=== PATIENT | male | born 1990 | race Caucasian/White ===

== ENCOUNTER 2018-09-01 22:19 | Emergency (ER) | payer SELFPAY ==
[2018-09-01 23:07] VITALS: BP 128/84
[2018-09-02] MEDS ORDERED: CEPHALEXIN 500 MG CAPSULE PO ONE (01:31)
--- NOTE | 2018-09-02 01:35 | ER Document Report ---
HPI - HPI Patient complains to provider of: wound Time Seen by Provider: 09/02/18 00:55 Pain Level: 1 Context: Patient is a 28 year old male that comes to the Emergency Department for chief complaint of a wound in his belly button area that occurred 3 days ago, but has worsened, he has developing pain over the area, he has had some bleeding and today he had at first a clear and then a minimal whitish discharge from the belly button reportedly. Patient denies fever chills, nausea or vomiting. He denies any other complaints. He denies any other areas of pain. He clarifies that he was bending over a corner of a table when the sharp point went into his belly button causing the wound which bled. There was no bruising to the area. He denies any daily medications or medical problems other than orthopedic surgery in the past. - GASTROINTESTINAL Gastrointestinal: REPORTS: Abdominal Pain Past Medical History - General Information source: Patient - Social History Smoking Status: Current Every Day Smoker Chew tobacco use (# tins/day): No Smoking Education Provided: Yes - <3 min Frequency of alcohol use: Occasional Drug Abuse: None Lives with: Family Family History: Reviewed & Not Pertinent Patient has suicidal ideation: No Patient has homicidal ideation: No Renal/ Medical History: Denies: Hx Peritoneal Dialysis Past Surgical History: Reports: Hx Orthopedic Surgery - left arm - Immunizations Immunizations up to date: Yes Hx Diphtheria, Pertussis, Tetanus Vaccination: Yes Vertical Provider Document - CONSTITUTIONAL General Appearance: WD/WN, No Apparent Distress, Obese - INFECTION CONTROL TRAVEL OUTSIDE OF THE [place] IN LAST 30 DAYS: No - HEENT HEENT: Atraumatic, Normocephalic - NECK Neck: Normal Inspection - RESPIRATORY Respiratory: Breath Sounds Normal, No Respiratory Distress - CARDIOVASCULAR Cardiovascular: Regular Rate, Regular Rhythm - GI/ABDOMEN Gastrointestinal: Abdomen Soft, Abdomen Non-Tender - BACK Back: Normal Inspection - MUSCULOSKELETAL/EXTREMETIES Musculoskeletal/Extremeties: MAEW, FROM, Non-Tender - NEURO Level of Consciousness: Awake, Alert, Appropriate Motor/Sensory: No Motor Deficit, No Sensory Deficit - DERM Integumentary: Laceration - There is evidence of a very superficial laceration inside of the bellybutton and over the inferior aspect of the bellybutton. There is no open wound or current bleeding. There is evidence of recent bleeding however. I do not see any purulent drainage. There is mild tenderness within the bellybutton and there is some erythema inside of the bellybutton extending to the inferior aspect of the bellybutton as well. There is no spreading erythema around the abdomen. Unremarkable skin exam otherwise. Course - Re-evaluation Re-evalutation: I used a Q-tip and examined the umbilicus thoroughly, there is no evidence of perforation into the abdomen or extension into the abdominal space. There is a superficial wound inside of the bellybutton that extends to the base of the bellybutton. There is tenderness and erythema, no purulent drainage or bleeding at this time. There is evidence of wound infection but no severe spreading cellulitis. Examination is unremarkable otherwise. There is no bruising, there is no abdominal tenderness otherwise suggesting severe injury, injury happened 3 days ago. No fever or chills, patient is not a diabetic. Area was cleaned, patient placed on Keflex, discussed expectations, care, follow-up, return prec autions. Patient states understanding and agreement. - Vital Signs Vital signs: Temp Pulse Resp BP Pulse Ox 98.5 F 82 18 128/84 H 98 09/01/18 22:57 09/01/18 22:57 09/01/18 22:57 09/01/18 22:57 09/01/18 22:57 Discharge - Discharge Clinical Impression: Wound of skin, Wound infection Condition: Stable Disposition: HOME, SELF-CARE Additional Instructions: Your evaluation shows a small wound in the belly, this has developed area consistent with infection. Take the Keflex antibiotics as prescribed. Keep area clean, clean with soap and water, dab dry, you can apply a very thin film of topical antibiotic over the area. Follow-up with primary care. Return for any concerning symptoms including Spreading redness, fever/chills, severe worsening pain, or any other concerning or worsening symptoms. Prescriptions: Cephalexin Monohydrate [Keflex 500 mg Capsule] 500 mg PO QID #28 capsule Forms: Return to Work
== END 2018-09-02 01:53 | disposition home or self-care (01) ==
LOC: ER 22:19
DX: S30.92XA Unspecified superficial injury of abdominal wall, initial encounter (principal); L08.9 Local infection of the skin and subcutaneous tissue, unspecified; X58.XXXA Exposure to other specified factors, initial encounter; F17.200 Nicotine dependence, unspecified, uncomplicated
CPT/HCPCS: 99282

== ENCOUNTER 2019-01-14 11:53 | Emergency (ER) | payer SELFPAY ==
[2019-01-14] MEDS ORDERED: NORMAL SALINE 1000 ML 1,000 ML IV ONE (12:02)
[2019-01-14] MEDS ORDERED: ONDANSETRON HCL INJ/PF 4 MG/2 ML SDV IV ONE (12:02)
--- NOTE | 2019-01-14 12:13 | ER Document Report ---
ED Medical Screen (RME) - General Chief Complaint: Abdominal Pain Stated Complaint: NAUSEA/VOMITING Time Seen by Provider: 01/14/19 12:01 Mode of Arrival: Ambulatory Information source: Patient TRAVEL OUTSIDE OF THE [place] IN LAST 30 DAYS: No - HPI Notes: 01/14/19 12:09 28-year-old male presents to the ED for complaints of nausea vomiting diarrhea x2 days, becoming progressively worse. Has tried [id number] antidiarrheal and antinausea medications without relief. hx of GERD. denies any new medications, recent travel or new foods. Denies any history of IBS, colitis, diverticulitis. Denies having any abdominal pain. denies fevers, chills, chest pain,palpitations, shortness of breath, dyspnea, hematuria,weakness, bowel or bladder dysfunction, saddle anesthesia, numbness or tingling in bilateral upper or lower extremities equally, muscle paralysis, weakness in bilateral upper or lower extremities equally or rash. ROS: Other than noted above, the 12 point review of systems was reviewed with the patient and were negative, all pertinent findings are included in the HPI. PHYSICAL EXAMINATION: Vital signs reviewed. GENERAL: Well-appearing, well-nourished and in no acute distress. HEAD: Atraumatic, normocephalic. NECK: Normal range of motion CV: Heart regular rate and rhythm LUNGS: No respiratory distress ABD: bs heard in all quads, epigastric abd tenderness Musculoskeletal: Normal range of motion NEUROLOGICAL: Normal speech PSYCH: Normal mood, normal affect. MDM: Patient seen and examined for rapid initial assessment. Vital signs reviewed. A comprehensive ED assessment and evaluation of the patient, analysis of test results and completion of the medical decision making process will be conducted by additional ED providers. *Note is created using voice recognition software and may contain spelling, syntax or grammatical errors. May not 01/14/19 12:13 - Related Data Allergies/Adverse Reactions: No Known Allergies Allergy (Verified 01/14/19 11:53) Past Medical History - Social History Frequency of alcohol use: None Drug Abuse: Marijuana Renal/ Medical History: Denies: Hx Peritoneal Dialysis Past Surgical History: Reports: Hx Orthopedic Surgery - left arm - Immunizations Immunizations up to date: Yes Hx Diphtheria, Pertussis, Tetanus Vaccination: Yes Physical Exam - Vital signs Vitals: Temp Pulse Resp BP Pulse Ox 98.2 F 80 20 132/70 H 97 01/14/19 11:57 01/14/19 11:57 01/14/19 11:57 01/14/19 11:57 01/14/19 11:57 Course - Vital Signs Vital signs: Temp Pulse Resp BP Pulse Ox 98.2 F 80 20 132/70 H 97 01/14/19 11:57 01/14/19 11:57 01/14/19 11:57 01/14/19 11:57 01/14/19 11:57
[2019-01-14 12:34] LABS: ABSOLUTE EOSINOPHILS # (AUTO) 0.6 10^3/uL (0.0-0.6); ABSOLUTE LYMPHOCYTES (AUTO) 1.6 10^3/uL (0.5-4.7); ABSOLUTE MONOCYTES (AUTO) 0.8 10^3/uL (0.1-1.4); ABSOLUTE NEUT (AUTO) 5.2 10^3/uL (1.7-8.2); BASOPHILS % (AUTO) 0.4 % (0-2); EOSINOPHILS % (AUTO) 7.9 % (0-6); HEMATOCRIT 43.1 % (37.9-51.0); HEMOGLOBIN 14.3 g/dL (13.5-17.0); LYMPHOCYTES % (AUTO) 19.4 % (13-45); MEAN CORPUSCULAR HEMOGLOBIN 29.7 pg (27.0-33.4); MEAN CORPUSCULAR HGB CONC 33.3 g/dL (32.0-36.0); MEAN CORPUSCULAR VOLUME 89 fl (80-97); MONOCYTES % (AUTO) 9.5 % (3-13); PLATELET COUNT 281 10^3/uL (150-450); RED BLOOD COUNT 4.83 10^6/uL (4.35-5.55); RED CELL DISTRIBUTION WIDTH 13.5 % (11.5-14.0); SEGMENTED NEUTROPHILS % (AUTO) 62.8 % (42-78); TOTAL CELLS COUNTED % (AUTO) 100 %; WHITE BLOOD COUNT 8.2 10^3/uL (4.0-10.5)
[2019-01-14 12:49] LABS: APPEARANCE,URINE CLEAR; BILIRUBIN,URINE NEGATIVE (NEGATIVE); COLOR,URINE YELLOW; GLUCOSE, URINE NEGATIVE (NEGATIVE); KETONES,URINE NEGATIVE (NEGATIVE); LEUKOCYTE ESTERASE,URINE NEGATIVE (NEGATIVE); NITRITE,URINE NEGATIVE (NEGATIVE); PROTEIN,URINE NEGATIVE (NEGATIVE); URINE SPECIFIC GRAVITY 1.013; UROBILINOGEN,URINE NEGATIVE mg/dL (<2.0)
[2019-01-14 12:54] LABS: ALANINE AMINOTRANSFERASE 47 U/L (21-72); ALBUMIN 4.1 g/dL (3.5-5.0); ALKALINE PHOSPHATASE 80 U/L (38-126); ANION GAP 7 (5-19); ASPARTATE AMINO TRANSFERASE 29 U/L (17-59); BILIRUBIN,DIRECT 0.3 mg/dL (0.0-0.4); BILIRUBIN,TOTAL 0.3 mg/dL (0.2-1.3); BLOOD UREA NITROGEN 8 mg/dL (7-20); CALCIUM 9.4 mg/dL (8.4-10.2); CARBON DIOXIDE 31 mmol/L (22-30); CHLORIDE 103 mmol/L (98-107); GLUCOSE 99 mg/dL (75-110); POTASSIUM 4.3 mmol/L (3.6-5.0); TOTAL PROTEIN 7.2 g/dL (6.3-8.2)
--- NOTE | 2019-01-14 13:10 | ER Document Report ---
ED General - General Chief Complaint: Abdominal Pain Stated Complaint: NAUSEA/VOMITING Time Seen by Provider: 01/14/19 12:01 Mode of Arrival: Ambulatory Information source: Patient Notes: This 27-year-old male presents emergency department with complaints of nausea vomiting diarrhea for 2 days. Reports he vomited all day yesterday and Saturday. Reports symptoms are worse in the morning and at night, seems to slow down during the midday. Reports he was drinking lots of fluids yesterday to try to stay hydrated but he kept vomiting them up.. He reports constant diarrhea with a very foul smell. Denies fever. He reports no other family members are ill. He works at [employer] no other coworkers are ill that he knows of. He has not been out of the country has not had recent antibiotics. Patient reports his abdomen does not hurt. Patient does admit to smoking marijuana. Reports he is increased use recently because it helps with the nausea. Patient also reports he is used Imodium and some type of antinausea medicine without relief. He woke up this morning vomited one time and he had 4-5 epoisodes of diarrhea. Patient has received 1 L of fluids reports he feels better. No further vomiting or diarrhea since arrival. TRAVEL OUTSIDE OF THE [place] IN LAST 30 DAYS: No - HPI Onset: Other Onset/Duration: Persistent Quality of pain: No pain Associated symptoms: Diarrhea, Nausea, Vomiting Exacerbated by: Denies Relieved by: Denies Similar symptoms previously: No Recently seen / treated by doctor: No - Related Data Allergies/Adverse Reactions: No Known Allergies Allergy (Verified 01/14/19 11:53) Past Medical History - General Information source: Patient - Social History Smoking Status: Current Every Day Smoker Cigarette use (# per day): No Frequency of alcohol use: None Drug Abuse: Marijuana Occupation: [employer] Lives with: Family Family History: Reviewed & Not Pertinent Patient has suicidal ideation: No Patient has homicidal ideation: No Renal/ Medical History: Denies: Hx Peritoneal Dialysis GI Medical History: Reports: Hx Gastroesophageal Reflux Disease Past Surgical History: Reports: Hx Orthopedic Surgery - left arm - Immunizations Immunizations up to date: Yes Hx Diphtheria, Pertussis, Tetanus Vaccination: Yes Review of Systems - Review of Systems Notes: Review HPI for review of systems., All other systems negative Physical Exam - Vital signs Vitals: Temp Pulse Resp BP Pulse Ox 98.2 F 80 20 132/70 H 97 01/14/19 11:57 01/14/19 11:57 01/14/19 11:57 01/14/19 11:57 01/14/19 11:57 - Notes Notes: PHYSICAL EXAMINATION: GENERAL: Well-appearing and in no acute distress HEAD: Atraumatic, normocephalic. EYES: Pupils equal round extraocular movements intact, sclera anicteric, conjunctiva are normal. ENT: nares patent, Moist mucous membranes. NECK: Normal range of motion, supple without lymphadenopathy LUNGS: CTAB and equal. No wheezes rales or rhonchi. HEART: Regular rate and rhythm without murmurs ABDOMEN: Soft, no tenderness. No guarding, no rebound EXTREMITIES: Normal range of motion, . NEUROLOGICAL: Cranial nerves grossly intact. PSYCH: Normal mood, normal affect. SKIN: Warm, Dry, normal turgor, no rashes or lesions noted Course - Re-evaluation Re-evalutation: 01/14/19 13:36 27-year-old presents with episodes of nausea vomiting diarrhea since Saturday. Reports he vomited one time this morning and had 4-5 episodes of diarrhea the same. Patient reports he is taking Imodium and antinausea medication without relief of symptoms. Also reports he is increased his usage of marijuana to help with the nausea. Reports nothing is working. Patient reports stool is very foul-smelling but denies recent antibiotic use denies recent trip. Discussed C. difficile patient is unaware of any family members with C. difficile. Patient feels better after 1 L fluid. Will do p.o. challenge provide patient with another liter of fluid and obtain stool sample if patient has diarrhea again. Patient verbalized understanding to plan of care. 01/14/19 14:25 Labs unremarkable. Patient was able to hold p.o. fluids down without problems. Ready to go home. No diarrhea since arrival. 01/14/19 12:15 01/14/19 12:15 MCV 89 fl (80-97) 01/14/19 12:15 MCH 29.7 pg (27.0-33.4) 01/14/19 12:15 MCHC 33.3 g/dL (32.0-36.0) 01/14/19 12:15 RDW 13.5 % (11.5-14.0) 01/14/19 12:15 Seg Neutrophils % 62.8 % (42-78) 01/14/19 12:15 Lymphocytes % 19.4 % (13-45) 01/14/19 12:15 Monocytes % 9.5 % (3-13) 01/14/19 12:15 Eosinophils % 7.9 % (0-6) H 01/14/19 12:15 Basophils % 0.4 % (0-2) 01/14/19 12:15 Absolute Neutrophils 5.2 10^3/uL (1.7-8.2) 01/14/19 12:15 Absolute Lymphocytes 1.6 10^3/uL (0.5-4.7) 01/14/19 12:15 Absolute Monocytes 0.8 10^3/uL (0.1-1.4) 01/14/19 12:15 Absolute Eosinophils 0.6 10^3/uL (0.0-0.6) 01/14/19 12:15 Absolute Basophils 0.0 10^3/uL (0.0-0.2) 01/14/19 12:15 Chloride 103 mmol/L (98-107) 01/14/19 12:15 Carbon Dioxide 31 mmol/L (22-30) H 01/14/19 12:15 Anion Gap 7 (5-19) 01/14/19 12:15 Est GFR ( Amer) > 60 (>60) 01/14/19 12:15 Est GFR (Non-Af Amer) > 60 (>60) 01/14/19 12:15 Glucose 99 mg/dL (75-110) 01/14/19 12:15 Calcium 9.4 mg/dL (8.4-10.2) 01/14/19 12:15 Total Bilirubin 0.3 mg/dL (0.2-1.3) 01/14/19 12:15 AST 29 U/L (17-59) 01/14/19 12:15 ALT 47 U/L (21-72) 01/14/19 12:15 Alkaline Phosphatase 80 U/L (38-126) 01/14/19 12:15 Total Protein 7.2 g/dL (6.3-8.2) 01/14/19 12:15 Albumin 4.1 g/dL (3.5-5.0) 01/14/19 12:15 Lipase 56.2 U/L (23-300) 01/14/19 12:15 Urine Color YELLOW 01/14/19 12:15 Urine Appearance CLEAR 01/14/19 12:15 Urine pH 9.0 (5.0-9.0) 01/14/19 12:15 Ur Specific [place] 1.013 01/14/19 12:15 Urine Protein NEGATIVE mg/dL (NEGATIVE) 01/14/19 12:15 Urine Glucose (UA) NEGATIVE mg/dL (NEGATIVE) 01/14/19 12:15 Urine Ketones NEGATIVE mg/dL (NEGATIVE) 01/14/19 12:15 Urine Blood NEGATIVE (NEGATIVE) 01/14/19 12:15 Urine Nitrite NEGATIVE (NEGATIVE) 01/14/19 12:15 Ur Leukocyte Esterase NEGATIVE (NEGATIVE) 01/14/19 12:15 Urine WBC (Auto) 0 /HPF 01/14/19 12:15 - Vital Signs Vital signs: Temp Pulse Resp BP Pulse Ox 98.5 F 78 18 136/78 H 99 01/14/19 15:00 01/14/19 15:00 01/14/19 15:00 01/14/19 15:00 01/14/19 15:00 - Laboratory Result Diagrams: 01/14/19 12:15 01/14/19 12:15 Laboratory results interpreted by me: 01/14/19 01/14/19 12:15 12:15 Eosinophils % 7.9 H Carbon Dioxide 31 H Discharge - Discharge Clinical Impression: Nausea vomiting and diarrhea Condition: Stable Disposition: HOME, SELF-CARE Instructions: Antinausea Medication ([facility]), Diarrhea, Nonspecific ([facility]), Intravenous (IV) Fluids ([facility]), OTC Antidiarrhea Medication ([facility]), Vomiting ([facility]) Additional Instructions: *You have been evaluated for nausea/vomiting/diarrhea *Take medication as prescribed *Over the counter anti-diarrheal as indicated *Ensure adequate fluid intake as discussed to prevent dehydration *Return to outpatient lab with stool sample *Follow up with a primary care provider within one week for recheck *Return to ED for worsening condition, changes, needs Monitor your blood pressure. Your blood pressure was elevated today. This may be because you were anxious, in pain or because you need medication. It is impo rtant to follow up with your primary care provider for full evaluation. Forms: Elevated Blood Pressure, Follow-Up Laboratory Testing, Return to Work
[2019-01-14] MEDS ORDERED: ONDANSETRON ODT 4 MG TAB (6 TAB/ER DISP) PO PRN (14:26)
[2019-01-14 15:01] VITALS: BP 136/78
== END 2019-01-14 15:01 | disposition home or self-care (01) ==
LOC: ER 11:53 → EDBD 11:53 → ER 15:01
DX: R11.2 Nausea with vomiting, unspecified (principal); R19.7 Diarrhea, unspecified; F17.200 Nicotine dependence, unspecified, uncomplicated; F12.10 Cannabis abuse, uncomplicated; Z87.19 Personal history of other diseases of the digestive system
CPT/HCPCS: 99284; 96361; 96374; 36415; 83690; 85025; 80053; 81001; J2405; J7030

== ENCOUNTER 2019-01-28 08:21 | Emergency (ER) | payer SELFPAY ==
[2019-01-28] MEDS ORDERED: ONDANSETRON HCL INJ/PF 4 MG/2 ML SDV IV ONE (09:41)
[2019-01-28] MEDS ORDERED: NORMAL SALINE 1000 ML 1,000 ML IV ONE (09:42)
[2019-01-28] MEDS ORDERED: MORPHINE SULFATE 10 MG/ML INJ IV ONE ×2 (09:42→11:59)
[2019-01-28] MEDS ORDERED: FAMOTIDINE INJ/PF 20 MG/2 ML SDV IV ONE (09:42)
--- NOTE | 2019-01-28 09:45 | ER Document Report ---
ED Medical Screen (RME) - General Chief Complaint: Nausea/Vomiting Stated Complaint: ABDOMINAL PAIN Time Seen by Provider: 01/28/19 09:41 Notes: Patient is a 27-year-old male who presents to the emergency department with a chief complaint of abdominal pain. Patient states this pain has been intermittent for the past 3 weeks. Patient states he was seen here in the emergency department for the same a few weeks ago. Patient states that over the past few weeks the pain has gradually gotten worse. Patient states the pain is primarily in the left upper quadrant. Patient states that he is able to eat at times which does not make the pain worse. Patient states he feels like he has to sleep on his right side as it is too painful to sleep on the left. Patient states he has been belching frequently which does not cause relief of his abd ominal pain. Patient reports a foul odor to his belching. Patient denies sick contacts or recent out of country travel. Patient denies fever. TRAVEL OUTSIDE OF THE [place] IN LAST 30 DAYS: No - Related Data Allergies/Adverse Reactions: No Known Allergies Allergy (Verified 01/28/19 08:27) Past Medical History Renal/ Medical History: Denies: Hx Peritoneal Dialysis GI Medical History: Reports: Hx Gastroesophageal Reflux Disease Past Surgical History: Reports: Hx Orthopedic Surgery - left arm - Immunizations Immunizations up to date: Yes Hx Diphtheria, Pertussis, Tetanus Vaccination: Yes Physical Exam - Vital signs Vitals: Temp Pulse Resp BP Pulse Ox 97.3 F 77 17 137/97 H 94 01/28/19 08:27 01/28/19 08:27 01/28/19 08:27 01/28/19 08:27 01/28/19 08:27 - Abdominal Inspection: Normal Distension: No distension Bowel sounds: Hyperactive Tenderness: Tender - Generalized upper abdominal tenderness. Course - Re-evaluation Re-evalutation: 01/28/19 09:44 I have greeted and performed a rapid initial assessment of this patient. A comprehensive ED assessment and evaluation of the patient, analysis of test results and completion of the medical decision making process will be conducted by additional ED providers. - Vital Signs Vital signs: Temp Pulse Resp BP Pulse Ox 97.3 F 77 17 137/97 H 94 01/28/19 08:27 01/28/19 08:27 01/28/19 08:27 01/28/19 08:27 01/28/19 08:27
[2019-01-28 10:21] LABS: ABSOLUTE BASOPHILS # (AUTO) 0.1 10^3/uL (0.0-0.2); ABSOLUTE EOSINOPHILS # (AUTO) 0.8 10^3/uL (0.0-0.6); ABSOLUTE LYMPHOCYTES (AUTO) 1.9 10^3/uL (0.5-4.7); ABSOLUTE MONOCYTES (AUTO) 0.8 10^3/uL (0.1-1.4); ABSOLUTE NEUT (AUTO) 7.8 10^3/uL (1.7-8.2); BASOPHILS % (AUTO) 0.5 % (0-2); EOSINOPHILS % (AUTO) 7.4 % (0-6); HEMATOCRIT 44.3 % (37.9-51.0); HEMOGLOBIN 14.4 g/dL (13.5-17.0); LYMPHOCYTES % (AUTO) 16.7 % (13-45); MEAN CORPUSCULAR HEMOGLOBIN 29.2 pg (27.0-33.4); MEAN CORPUSCULAR HGB CONC 32.5 g/dL (32.0-36.0); MEAN CORPUSCULAR VOLUME 90 fl (80-97); MONOCYTES % (AUTO) 7.2 % (3-13); PLATELET COUNT 280 10^3/uL (150-450); RED BLOOD COUNT 4.94 10^6/uL (4.35-5.55); RED CELL DISTRIBUTION WIDTH 13.8 % (11.5-14.0); SEGMENTED NEUTROPHILS % (AUTO) 68.2 % (42-78); TOTAL CELLS COUNTED % (AUTO) 100 %; WHITE BLOOD COUNT 11.4 10^3/uL (4.0-10.5)
--- NOTE | 2019-01-28 10:38 | ER Document Report ---
ED GI/ - General Chief Complaint: Nausea/Vomiting Stated Complaint: ABDOMINAL PAIN Time Seen by Provider: 01/28/19 09:41 Mode of Arrival: Ambulatory Information source: Patient Notes: This is an otherwise healthy 28-year-old male presenting to the emergency department chief complaint of nausea, vomiting and diarrhea. He also reports generalized abdominal pain. Patient reports pain has been persistent over the last 2 days. He reports he was seen here in this emergency department for si milar symptoms approximately 1 week ago. Patient reports the symptoms have been intermittent over the last week but getting worse over the last 24 hours. He is unsure if he has had a fever but he does report that he has had chills. He denies any dysuria or back pain. He states the abdominal pain feels like a sharp stabbing pain throughout his abdomen. TRAVEL OUTSIDE OF THE [place] IN LAST 30 DAYS: No - Related Data Allergies/Adverse Reactions: No Known Allergies Allergy (Verified 01/28/19 08:27) Past Medical History - General Information source: Patient - Social History Smoking Status: Current Every Day Smoker Chew tobacco use (# tins/day): No Drug Abuse: None Family History: Reviewed & Not Pertinent Patient has suicidal ideation: No Patient has homicidal ideation: No Renal/ Medical History: Denies: Hx Peritoneal Dialysis GI Medical History: Reports: Hx Gastroesophageal Reflux Disease Past Surgical History: Reports: Hx Orthopedic Surgery - left arm - Immunizations Immunizations up to date: Yes Hx Diphtheria, Pertussis, Tetanus Vaccination: Yes Review of Systems - Review of Systems Constitutional: Chills EENT: No symptoms reported Cardiovascular: No symptoms reported Respiratory: No symptoms reported Gastrointestinal: Abdominal pain, Diarrhea, Nausea, Vomiting Genitourinary: No symptoms reported Male Genitourinary: No symptoms reported Musculoskeletal: No symptoms reported Skin: No symptoms reported Hematologic/Lymphatic: No symptoms reported Neurological/Psychological: No symptoms reported Physical Exam - Vital signs Vitals: Temp Pulse Resp BP Pulse Ox 97.3 F 77 17 137/97 H 94 01/28/19 08:27 01/28/19 08:27 01/28/19 08:27 01/28/19 08:27 01/28/19 08:27 - Notes Notes: PHYSICAL EXAMINATION: GENERAL: Morbidly obese white male. No acute distress noted. HEAD: Atraumatic, normocephalic. EYES: Pupils equal round and reactive to light, extraocular movements intact, sclera anicteric, conjunctiva are normal. ENT: Nares patent, oropharynx clear without exudates. Moist mucous membranes. NECK: Normal range of motion, supple without lymphadenopathy LUNGS: Breath sounds clear to auscultation bilaterally and equal. No wheezes rales or rhonchi. HEART: Regular rate and rhythm without murmurs ABDOMEN: Soft, nondistended abdomen. Generalized tenderness to palpation no guarding, no rebound. No masses appreciated. Musculoskeletal: Normal range of motion, no pitting or edema. No cyanosis. NEUROLOGICAL: Cranial nerves grossly intact. Normal speech, normal gait. Normal sensory, motor exams PSYCH: Normal mood, normal affect. SKIN: Warm, Dry, normal turgor, no rashes or lesions noted. Course - Re-evaluation Re-evalutation: Laboratory 01/28/19 01/28/19 01/28/19 10:00 10:00 10:23 WBC 11.4 H RBC 4.94 Hgb 14.4 Hct 44.3 MCV 90 MCH 29.2 MCHC 32.5 RDW 13.8 Plt Count 280 Seg Neutrophils % 68.2 Lymphocytes % 16.7 Monocytes % 7.2 Eosinophils % 7.4 H Basophils % 0.5 Absolute Neutrophils 7.8 Absolute Lymphocytes 1.9 Absolute Monocytes 0.8 Absolute Eosinophils 0.8 H Absolute Basophils 0.1 Sodium 139.5 Potassium 4.6 Chloride 105 Carbon Dioxide 27 Anion Gap 8 BUN 8 Creatinine 0.74 Est GFR ( Amer) > 60 Est GFR (Non-Af Amer) > 60 Glucose 93 Calcium 9.1 Total Bilirubin 0.3 Direct Bilirubin 0.3 Neonat Total Bilirubin Not Reportable Neonat Direct Bilirubin Not Reportable Neonat Indirect Bili Not Reportable AST 38 ALT 38 Alkaline Phosphatase 82 Total Protein 7.0 Albumin 4.0 Lipase 43.8 Urine Color STRAW Urine Appearance CLEAR Urine pH 6.0 Ur Specific [place] 1.012 Urine Protein NEGATIVE Urine Glucose (UA) NEGATIVE Urine Ketones NEGATIVE Urine Blood NEGATIVE Urine Nitrite NEGATIVE Urine Bilirubin NEGATIVE Urine Urobilinogen NEGATIVE Ur Leukocyte Esterase NEGATIVE Urine WBC (Auto) 0 Urine RBC (Auto) 0 Urine Ascorbic Acid NEGATIVE Abdomen/Pelvis CT 01/28/19 11:59 IMPRESSION: 1. Gas fluid levels in the transverse and descending colon which can be seen with diarrheal illness or cathartic use. No evidence of intestinal obstruction or other acute intra-abdominal process. 2. Small area of decreased attenuation along the gallbladder fossa, likely focal fat. 3. Partially evaluated low density lesion within the right inguinal canal, likely hydrocele. - Vital Signs Vital signs: Temp Pulse Resp BP Pulse Ox 98.1 F 86 16 127/82 H 98 01/28/19 14:37 01/28/19 14:37 01/28/19 14:37 01/28/19 14:37 01/28/19 14:37 - Laboratory Result Diagrams: 01/28/19 10:00 01/28/19 10:00 Laboratory results interpreted by me: 01/28/19 10:00 WBC 11.4 H Eosinophils % 7.4 H Absolute Eosinophils 0.8 H Discharge - Discharge Clinical Impression: Diarrhea Qualifiers: Diarrhea type: unspecified type Qualified Code(s): R19.7 - Diarrhea, unspecified Condition: Stable Disposition: HOME, SELF-CARE Additional Instructions: Diarrhea Diarrhea means frequent, watery stools. There are many causes. Any problem that keeps the intestinal tract from absorbing water from the stool can lead to diarrhea. A sudden new diarrhea problem is usually caused by a virus, food sensitivity, toxic bacteria, or drugs. In this case, we expect the problem to go away soon. Testing is done only if you seem seriously ill from the diarrhea. If you have chronic diarrhea, or diarrhea that keeps coming back, we need to find out why. Chronic diarrhea can be due to inflammation of the bowels such as Crohn's disease or ulcerative colitis, food sensitivity such as intolerance to lactose or wheat protein, irritable bowel syndrome, and other problems. If your diarrhea is a significant problem but it's not clear why you have it, we'll refer you to a specialist for further testing. During an episode of diarrhea, drink small amounts (two to six ounces) of clear liquids (soft drinks, sport drinks, herb teas, broth, etc). Take fluids frequently to prevent dehydration. It's usually not a problem to take mild anti- diarrhea medication such as Kaopectate or Pepto-Bismol. As the diarrhea eases, advance to small amounts of bland food (mashed potato, toast) for 24 hours. Call the physician if blood appears in your vomit or stool, if vomiting lasts longer than 24 hours, if the abdominal pain worsens or becomes localized to one area, if you develop high fever, or if you become lightheaded and weak. As discussed please call and make an appointment with a lottery office manager. Take antibiotics as prescribed. You may want to consider taking an [id number] Imodium. Start taking probiotics. Push fluids. Drop off a stool sample if possible, taken straight to the lab with the associated paperwork. Return to the emergency department for any new or worsening symptoms to include worsening pain, development of fever or any other concerning symptoms. Prescriptions: Ciprofloxacin HCl [Cipro 500 mg Tablet] 500 mg PO BID #6 tablet Forms: Follow-Up Laboratory Testing, Return to Work
[2019-01-28 10:48] LABS: APPEARANCE,URINE CLEAR; BILIRUBIN,URINE NEGATIVE (NEGATIVE); COLOR,URINE STRAW; GLUCOSE, URINE NEGATIVE (NEGATIVE); KETONES,URINE NEGATIVE (NEGATIVE); LEUKOCYTE ESTERASE,URINE NEGATIVE (NEGATIVE); NITRITE,URINE NEGATIVE (NEGATIVE); PROTEIN,URINE NEGATIVE (NEGATIVE); URINE SPECIFIC GRAVITY 1.012; UROBILINOGEN,URINE NEGATIVE mg/dL (<2.0)
[2019-01-28 10:49] LABS: ALKALINE PHOSPHATASE 82 U/L (38-126); ANION GAP 8 (5-19); ASPARTATE AMINO TRANSFERASE 38 U/L (17-59); BILIRUBIN,DIRECT 0.3 mg/dL (0.0-0.4); BILIRUBIN,TOTAL 0.3 mg/dL (0.2-1.3); BLOOD UREA NITROGEN 8 mg/dL (7-20); CALCIUM 9.1 mg/dL (8.4-10.2); CARBON DIOXIDE 27 mmol/L (22-30); CHLORIDE 105 mmol/L (98-107); GLUCOSE 93 mg/dL (75-110); POTASSIUM 4.6 mmol/L (3.6-5.0)
[2019-01-28] MEDS ORDERED: METOCLOPRAMIDE HCL INJ/PF 10 MG/2 ML SDV IV ONE (11:58)
--- NOTE | 2019-01-28 12:35 | RADIOLOGY REPORT (SQ) ---
EXAM DESCRIPTION: CT ABD/PELVIS WITH IV ONLY COMPLETED DATE/TIME: 01/28/2019 12:20 pm REASON FOR STUDY: diarrhea, LLQ/LUQ pain COMPARISON: None. TECHNIQUE: CT scan of the abdomen and pelvis performed using helical scanning technique with dynamic intravenous contrast injection. No oral contrast. Images reviewed with lung, soft tissue, and bone windows. Reconstructed coronal and sagittal MPR images reviewed. Delayed images for evaluation of the urinary system also acquired. All images stored on PACS. All CT scanners at this facility use dose modulation, iterative reconstruction, and/or weight based d osing when appropriate to reduce radiation dose to as low as reasonably achievable (ALARA). [facility]: Dose Right [facility]: CareDose [facility]: Dose Right [facility]: Teradose 4D [facility]: [employer] CONTRAST TYPE AND DOSE: Omnipaque 350 RENAL FUNCTION: Creatinine 0.74 RADIATION DOSE: CT Rad equipment meets quality standard of care and radiation dose reduction techniq ues were employed. CTDIvol: 18.6 - 20.3 mGy. DLP: 2502 mGy-cm.. LIMITATIONS: None. FINDINGS: LOWER CHEST: No significant findings. No nodules or infiltrates. LIVER: Normal size. Focal area of hypoattenuation along the gallbladder fossa, likely O focal fat. No other hepatic lesions. No intrahepatic ductal dilation. SPLEEN: Normal size. No focal lesions. PANCREAS: No masses. No significant calcifications. No adjacent inflammation or peripancreatic fluid collections. Pancreatic duct not dilated. GALLBLADDER: No identified stones by CT criteria. No inflammatory changes to suggest cholecystitis. ADRENAL GLANDS: No significant masses or asymmetry. RIGHT KIDNEY AND URETER: No solid masses. No significant calcifications. No hydronephrosis or hyd roureter. LEFT KIDNEY AND URETER: No solid masses. No significant calcifications. No hydronephrosis or hydr oureter. AORTA AND VESSELS: No aneurysm. No dissection. Renal arteries, SMA, celiac without stenosis. RETROPERITONEUM: No retroperitoneal adenopathy, hemorrhage or masses. BOWEL AND PERITONEAL CAVITY: No focal bowel wall thickening. No evidence of intestinal obstruction. Fluid level within the transverse and descending colon which can be seen with diarrheal illness or c athartic use. APPENDIX: Normal. PELVIS: No mass or free fluid. Unremarkable bladder. Partially evaluated low-attenuation within the right inguinal canal, likely hydrocele. ABDOMINAL WALL: No masses. No hernias. BONES: No significant or acute findings. OTHER: No other significant finding. IMPRESSION: 1. Gas fluid levels in the transverse and descending colon which can be seen with diarr heal illness or cathartic use. No evidence of intestinal obstruction or other acute intra-abdominal process. 2. Small area of decreased attenuation along the gallbladder fossa, likely focal fat. 3. Partially evaluated low density lesion within the right inguinal canal, likely hydrocele. TECHNICAL DOCUMENTATION: JOB ID: [id number] Quality ID # [id number]: Final reports with documentation of one or more dose reduction techniques (e.g., Au tomated exposure control, adjustment of the mA and/or kV according to patient size, use of iterative reconstruction technique) 2010 [employer]- All Rights Reserved Reading location - IP/workstation name: [email or web address]
[2019-01-28 14:39] VITALS: BP 127/82
== END 2019-01-28 14:39 | disposition home or self-care (01) ==
LOC: ER 08:21
DX: R19.7 Diarrhea, unspecified (principal); R11.2 Nausea with vomiting, unspecified; R10.84 Generalized abdominal pain; F17.200 Nicotine dependence, unspecified, uncomplicated; E66.01 Morbid (severe) obesity due to excess calories
CPT/HCPCS: 99284; 96374; 36415; 83690; 85025; 80053; 81001; 74177; J2765; J2270; J2405; J7030; S0028

== ENCOUNTER 2019-05-15 17:36 | Emergency (ER) | payer MEDICAID ==
[2019-05-15] MEDS ORDERED: ACETAMINOPHEN 325 MG TABLET PO ONE (18:57)
[2019-05-15 19:40] VITALS: BP 132/87
--- NOTE | 2019-05-15 19:41 | ER Document Report ---
HPI - HPI Patient complains to provider of: Sore throat Time Seen by Provider: 05/15/19 18:44 Pain Level: 2 Context: Patient is a 28-year-old male presents to the emergency department sore throat and subjective fevers that started yesterday. Voices he does have a history of strep throat. States he gets it "all the time." Patient's denying any cough, congestion, nausea, vomiting, diarrhea. Patient voices he did take Motrin approximately 2 hours prior to arrival to the emergency room. - REPRODUCTIVE Reproductive: DENIES: : Past Medical History - General Information source: Patient - Social History Smoking Status: Former Smoker Frequency of alcohol use: Occasional Drug Abuse: Marijuana Family History: Reviewed & Not Pertinent Patient has suicidal ideation: No Patient has homicidal ideation: No Renal/ Medical History: Denies: Hx Peritoneal Dialysis GI Medical History: Reports: Hx Gastroesophageal Reflux Disease Past Surgical History: Reports: Hx Orthopedic Surgery - left arm - Immunizations Immunizations up to date: Yes Hx Diphtheria, Pertussis, Tetanus Vaccination: Yes Vertical Provider Document - CONSTITUTIONAL Agree With Documented VS: Yes Notes: GENERAL: Alert, interacts well. No acute distress. HEAD: Normocephalic, atraumatic. EYES: Pupils equal, round, and reactive to light. Extraocular movements intact. ENT: Oral mucosa moist, tongue midline. Nares patent, TM's intact, nonerythematous, nonbulging bilaterally. Pharynx erythematous, tonsils +2 bilaterally with exudate noted. No palatal petechiae noted. NECK: Full range of motion. Supple. Trachea midline. No lymphadenopathy appreciated LUNGS: Clear to auscultation bilaterally, no wheezes, rales, or rhonchi. No respiratory distress. HEART: Regular rate and rhythm. No murmur ABDOMEN: Soft, non-tender. Non-distended. Bowel sounds present in all 4 quadrants. EXTREMITIES: Moves all 4 extremities spontaneously. No edema, normal radial and dorsalis pedis pulses bilaterally. No cyanosis. BACK: no cervical, thoracic, lumbar midline tenderness. No saddle anesthesia, normal distal neurovascular exam. NEUROLOGICAL: Alert and oriented x3. Normal speech. cranial nerves II through XII grossly intact. PSYCH: Normal affect, normal mood. SKIN: Warm, dry, normal turgor. No rashes or lesions noted. - INFECTION CONTROL TRAVEL OUTSIDE OF THE [place] IN LAST 30 DAYS: No Course - Re-evaluation Re-evalutation: 05/15/19 19:39 Laboratory 05/15/19 18:55 Group A Strep Rapid NEGATIVE Rapid strep test negative in the emergency department. Discussed with patient sending it for culture. Discussed continued use of Tylenol or Motrin [id number]. Discussed staying well-hydrated and following up with primary care provider. Patient has a non-muffled voice, tonsils symmetrical. Stable for discharge. - Vital Signs Vital signs: Temp Pulse Resp BP Pulse Ox 97.6 F 82 16 147/81 H 97 05/15/19 17:40 05/15/19 17:40 05/15/19 17:40 05/15/19 17:40 05/15/19 17:40 Discharge - Discharge Clinical Impression: Sore throat (viral) Condition: Stable Disposition: HOME, SELF-CARE Instructions: Viral Syndrome ([facility]), Sore Throat ([facility]) Additional Instructions: You have been seen and treated in the emergency department for a sore throat. Your rapid strep test is negative for bacteria. We have sent it for culture. Should it grow bacteria the hospital will contact you. Please continue to take [id number] Tylenol or Motrin for generalized discomfort. Please stay well-hydrated. Please follow-up with your primary care provider in the next 12 to 24 hours. Please return to the emergency room for any concerns. Forms: Return to Work
== END 2019-05-15 19:45 | disposition home or self-care (01) ==
LOC: ER 17:36
DX: J02.8 Acute pharyngitis due to other specified organisms (principal); B97.89 Other viral agents as the cause of diseases classified elsewhere; F12.10 Cannabis abuse, uncomplicated; Z87.891 Personal history of nicotine dependence
CPT/HCPCS: 99283; 87070; 87880; J3490

== ENCOUNTER 2019-08-24 13:46 | Emergency (ER) | payer SELFPAY ==
[2019-08-24] MEDS ORDERED: NORMAL SALINE 1000 ML 1,000 ML IV ONE (14:00)
[2019-08-24] MEDS ORDERED: ONDANSETRON HCL INJ/PF 4 MG/2 ML SDV IV ONE (14:00)
--- NOTE | 2019-08-24 14:03 | ER Document Report ---
ED Medical Screen (RME) - General Chief Complaint: Nausea/Vomiting Stated Complaint: NAUSEA,VOMITING,COUGH Time Seen by Provider: 08/24/19 13:58 Mode of Arrival: Ambulatory Information source: Patient Notes: 28-year-old male presented ED for nausea vomiting diarrhea since last night. He states he has not had any fevers. He states he is only eaten one thing today and he threw it back up. He is alert oriented respirations regular nonlabored speaking in full sentences. He does not have any "pain but he does have muscle aches. 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 I have greeted and performed a rapid initial assessment of this patient. A comprehensive ED assessment and evaluation of the patient, analysis of test results and completion of medical decision making process will be conducted by an additional ED providers. TRAVEL OUTSIDE OF THE [place] IN LAST 30 DAYS: No - Related Data Allergies/Adverse Reactions: No Known Allergies Allergy (Verified 08/24/19 13:57) Past Medical History Renal/ Medical History: Denies: Hx Peritoneal Dialysis GI Medical History: Reports: Hx Gastroesophageal Reflux Disease Past Surgical History: Reports: Hx Orthopedic Surgery - left arm - Immunizations Immunizations up to date: Yes Hx Diphtheria, Pertussis, Tetanus Vaccination: Yes Physical Exam - Vital signs Vitals: Temp Pulse Resp BP Pulse Ox 97.9 F 77 16 134/86 H 96 08/24/19 13:51 08/24/19 13:51 08/24/19 13:51 08/24/19 13:51 08/24/19 13:51 Course - Vital Signs Vital signs: Temp Pulse Resp BP Pulse Ox 97.9 F 77 16 134/86 H 96 08/24/19 13:51 08/24/19 13:51 08/24/19 13:51 08/24/19 13:51 08/24/19 13:51
--- NOTE | 2019-08-24 15:06 | ER Document Report ---
ED GI/ - General Chief Complaint: Nausea/Vomiting/Diarrhea Stated Complaint: NAUSEA,VOMITING,COUGH Time Seen by Provider: 08/24/19 14:20 Primary Care Provider: [facility] [Provider Group] - Follow up as needed PONCHO RO MD [ACTIVE STAFF] - Follow up as needed RANDALL HENNING MD [ACTIVE STAFF] - Follow up as needed KAMILAH BASILIO MD [ACTIVE STAFF] - Follow up as needed Mode of Arrival: Ambulatory Information source: Patient Notes: Patient presents complaining of nausea vomiting diarrhea that started yesterday. Patient states that he has not had any fever. Patient does report left lower pelvic abdominal pain that he has had off and on for the past 3 to 4 months. Patient does have some low back pain as well. Patient denies any urinary sympt oms. TRAVEL OUTSIDE OF THE [place] IN LAST 30 DAYS: No - HPI Patient complains to provider of: Diarrhea, Vomiting Onset: Yesterday Timing/Duration: Waxing and waning Pain Level: 2 Location: LLQ Associated symptoms: Diarrhea, Nausea, Vomiting. 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 denies: Fever, Recent illness EENT: No symptoms reported Cardiovascular: No symptoms reported. denies: Chest pain Respiratory: No symptoms reported. denies: Cough, Short of breath Gastrointestinal: Abdominal pain - For the past 3 to 4 months to the left lateral side, Diarrhea, Nausea, Vomiting. denies: Blood streaked bowels Genitourinary: No symptoms reported. denies: Dysuria Male Genitourinary: No symptoms reported Musculoskeletal: No symptoms reported Skin: No symptoms reported Hematologic/Lymphatic: No symptoms reported Neurological/Psychological: No symptoms reported Physical Exam - Vital signs Vitals: Temp Pulse Resp BP Pulse Ox 97.9 F 77 16 134/86 H 96 08/24/19 13:51 08/24/19 13:51 08/24/19 13:51 08/24/19 13:51 08/24/19 13:51 - General General appearance: Appears well, Alert In distress: None - HEENT Head: Normocephalic, Atraumatic Eyes: Normal Conjunctiva: Normal Nasal: Normal Mouth/Lips: Normal Mucous membranes: Normal Neck: Normal, Supple. No: Lymphadenopathy - Respiratory Respiratory status: No respiratory distress Chest status: Nontender Breath sounds: Normal. No: Rales, Rhonchi, Stridor, Wheezing Chest palpation: Normal - Cardiovascular Rhythm: Regular Heart sounds: S1 appreciated, S2 appreciated Murmur: No - Abdominal Inspection: Morbidly Obese Distension: No distension Bowel sounds: Normal Tenderness: Tender - Left lower quadrant Organomegaly: No organomegaly - Back Back: CVA tenderness - Left - Extremities General upper extremity: Normal inspection, Normal strength General lower extremity: Normal inspection, Normal strength - Neurological Neuro grossly intact: Yes Cognition: Normal Brittani Coma Scale Eye Opening: Spontaneous Lincoln Coma Scale Verbal: Oriented Brittani Coma Scale Motor: Obeys Commands Lincoln Coma Scale Total: 15 - Psychological Associated symptoms: Normal affect, Normal mood - Skin Skin Temperature: Warm Skin Moisture: Dry Skin Color: Normal Course - Re-evaluation Re-evalutation: 08/24/19 17:11 Patient refuses any imaging at this time. Patient states he has chronic abdominal pain and that this pain is not different than what he has been dealing with for the past several months. Discussed with patient concerned about possible intra-abdominal process that may be causing his symptoms. Patient agreeable with signing refusal treatment form. 08/24/19 Patient presents with abdominal pain without signs of peritonitis or other life- threatening or serious etiology. Patient appears stable for discharge and has been instructed to return immediately if the symptoms worsen in any way. - Vital Signs Vital signs: Temp Pulse Resp BP Pulse Ox 98.0 F 61 18 127/86 H 98 08/24/19 17:31 08/24/19 17:31 08/24/19 17:31 08/24/19 17:31 08/24/19 17:31 - Laboratory Result Diagrams: 08/24/19 14:45 08/24/19 14:45 Laboratory results interpreted by me: 08/24/19 14:45 RDW 14.1 H Eos % (Auto) 8.0 H Absolute Eos (auto) 0.7 H Labs- Entire Visit 08/24/19 08/24/19 08/24/19 14:45 14:45 15:46 WBC 9.0 RBC 4.86 Hgb 14.9 Hct 42.9 MCV 88 MCH 30.6 MCHC 34.6 RDW 14.1 H Plt Count 285 Lymph % (Auto) 21.4 Griggs % (Auto) 7.5 Eos % (Auto) 8.0 H Baso % (Auto) 0.6 Absolute Neuts (auto) 5.6 Absolute Lymphs (auto) 1.9 Absolute Monos (auto) 0.7 Absolute Eos (auto) 0.7 H Absolute Basos (auto) 0.1 Seg Neutrophils % 62.5 Sodium 140.0 Potassium 4.1 Chloride 102 Carbon Dioxide 29 Anion Gap 9 BUN 11 Creatinine 0.63 Est GFR ( Amer) > 60 Est GFR (MDRD) Non-Af > 60 Glucose 94 Calcium 9.7 Total Bilirubin 0.5 Direct Bilirubin 0.2 Neonat Total Bilirubin Not Reportable Neonat Direct Bilirubin Not Reportable Neonat Indirect Bili Not Reportable AST 27 ALT 38 Alkaline Phosphatase 91 Total Protein 7.5 Albumin 4.1 Lipase 107.5 Urine Color YELLOW Urine Appearance SLIGHTLY-CLOUDY Urine pH 8.0 Ur Specific Nancy 1.021 Urine Protein NEGATIVE Urine Glucose (UA) NEGATIVE Urine Ketones NEGATIVE Urine Blood NEGATIVE Urine Nitrite (Reflex) NEGATIVE Urine Bilirubin NEGATIVE Urine Urobilinogen NEGATIVE Leukocyte Esterase Rfl NEGATIVE Urine RBC (Auto) 3 Urine Bacteria (Auto) TRACE Urine WBC (Reflex) 4 Calcium Oxalate Cr Auto MODERATE Amorphous Sediment Auto TRACE Urine Mucus (Auto) RARE Urine Ascorbic Acid NEGATIVE Discharge - Discharge Clinical Impression: Nausea vomiting and diarrhea Abdominal pain Qualifiers: Abdominal location: unspecified location Qualified Code(s): R10.9 - Unspecified abdominal pain Condition: Stable Disposition: HOME, SELF-CARE Additional Instructions: Return immediately for any new or worsening symptoms Followup with your primary care provider, call tomorrow to make a followup appointment You should see 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 VOMITING: Vomiting (or nausea without vomiting) can be caused by many other different problems. It can mean that something's wrong with the stomach, such as ulcers or inflammation or the intestinal tract, such as appendicitis. But it can also be a symptom of a problem that has nothing to do with the stomach or intestines. V omiting is common with severe headaches, earaches, tonsillitis, and kidney infections, etc. We see it with pneumonia or heart attacks. Drugs can cause nausea and vomiting. Many abdominal problems cause vomiting; for example, gallstones, kidney stones, pancreatitis, and intestinal obstruction (blocked bowels). In most cases, curing the vomiting depends on fixing the problem that caused it. For temporary relief, we may use an anti-nausea medicine. For home use, we can prescribe suppositories, chewable pills, pills that dissolve in the mouth, or liquid anti-nausea drugs. If the vomiting seems to be caused by a problem in the stomach, acid-suppressing drugs may be prescribed as well. It's important to avoid dehydration. Sip small amounts of clear liquids (soft drinks, tea, broth, etc) . Try to take fluids frequently even if you are vomiting to prevent dehydration. Take increasing amounts of fluid and when liquids are being consumed successfully, advance to small amounts of bland food (toast, soups, mashed potatoes, etc.) until you are able to resume a regular diet. Avoid aspirin, tobacco, and alcohol. If the vomiting worsens, if the problem that's making you vomit worsens, or if there's evidence of bleeding in the stomach (such as black, tarry stool, or bloody or black vomit), you should return immediately. Also, return if abdominal pain worsens or becomes localized to one area or you develop high fever. Call your doctor if you aren't improved in 24 hours. DIARRHEA, NON-SPECIFIC: Diarrhea means frequent, watery stools. There are many causes. Any problem that keeps the intestinal tract from absorbing water from the stool can lead to diarrhea. A sudden new diarrhea problem is usually caused by a virus, food sensitivity, toxic bacteria, or drugs. In this case, we expect the problem to go away soon. Testing is done only if you seem seriously ill from the diarrhea. If you have chronic diarrhea, or diarrhea that keeps coming back, we need to find out why. Chronic diarrhea can be due to inflammation of the bowels such as Crohn's disease or ulcerative colitis, food sensitivity such as intolerance to lactose or wheat protein, irritable bowel syndrome, and other problems. If your diarrhea is a significant problem but it's not clear why you have it, we'll refer you to a specialist for further testing. During an episode of diarrhea, drink small amounts (two to six ounces) of clear liquids (soft drinks, sport drinks, herb teas, broth, etc). Take fluids frequently to prevent dehydration. It's usually not a problem to take mild anti- diarrhea medication such as Kaopectate or Pepto-Bismol. As the diarrhea eases, advance to small amounts of bland food (mashed potato, toast) for 24 hours. Call the physician if blood appears in your vomit or stool, if vomiting lasts longer than 24 hours, if the abdominal pain worsens or becomes localized to one area, if you develop high fever, or if you become lightheaded and weak. INTRAVENOUS (I V) FLUIDS: As part of your care today, you received intravenous (IV) fluids. IV flui ds are administered to patients who are dehydrated or to those who have certain chemical (electrolyte) abnormalities that need correcting. ANTINAUSEA MEDICATION: You have been given a medication to suppress nausea and vomiting. This type of medication can be given as a shot, pill, or suppository. It will usually last for many hours. Pills and shots usually last six to eight hours. For the typical illness, only one or two doses of the medication may be necessary. Mild lightheadedness may occur. This type of medicine can cause drowsiness. Do not drive or operate dangerous machinery while under its influence. Do not mix with alcohol. See your doctor at once if you have muscle spasms or tightness, or uncontrollable motions (particularly of the neck, mouth, or jaw). Persistent vomiting or severe lightheadedness should also be evaluated by the physician. FOLLOW-UP CARE: If you have been referred to a physician for follow-up care, call the physicians office for an appointment as you were instructed or within the next two days. If you experience worsening or a significant change in your symptoms, notify the physician immediately or return to the Emergency Department at any time for re-evaluation. Prescriptions: Ondansetron [Zofran Odt 4 mg Tablet] 1 tab PO Q6H #15 tab.rapdis Forms: Return to Work Referrals: [facility] [Provider Group] - Follow up as needed KAMILAH BASILIO MD [ACTIVE STAFF] - Follow up as needed RANDALL HENNING MD [ACTIVE STAFF] - Follow up as needed PONCHO RO MD [ACTIVE STAFF] - Follow up as needed
[2019-08-24 15:10] LABS: ABSOLUTE BASOPHILS # (AUTO) 0.1 10^3/uL (0.0-0.2); ABSOLUTE EOSINOPHILS # (AUTO) 0.7 10^3/uL (0.0-0.6); ABSOLUTE LYMPHOCYTES (AUTO) 1.9 10^3/uL (0.5-4.7); ABSOLUTE MONOCYTES (AUTO) 0.7 10^3/uL (0.1-1.4); ABSOLUTE NEUT (AUTO) 5.6 10^3/uL (1.7-8.2); BASOPHILS % (AUTO) 0.6 % (0-2); HEMATOCRIT 42.9 % (37.9-51.0); HEMOGLOBIN 14.9 g/dL (13.5-17.0); LYMPHOCYTES % (AUTO) 21.4 % (13-45); MEAN CORPUSCULAR HEMOGLOBIN 30.6 pg (27.0-33.4); MEAN CORPUSCULAR HGB CONC 34.6 g/dL (32.0-36.0); MEAN CORPUSCULAR VOLUME 88 fl (80-97); MONOCYTES % (AUTO) 7.5 % (3-13); PLATELET COUNT 285 10^3/uL (150-450); RED BLOOD COUNT 4.86 10^6/uL (4.35-5.55); RED CELL DISTRIBUTION WIDTH 14.1 % (11.5-14.0); SEGMENTED NEUTROPHILS % (AUTO) 62.5 % (42-78); TOTAL CELLS COUNTED % (AUTO) 100 %
[2019-08-24 15:31] LABS: ALBUMIN 4.1 g/dL (3.5-5.0); ALKALINE PHOSPHATASE 91 U/L (38-126); ANION GAP 9 (5-19); ASPARTATE AMINO TRANSFERASE 27 U/L (17-59); BILIRUBIN,DIRECT 0.2 mg/dL (0.0-0.4); BILIRUBIN,TOTAL 0.5 mg/dL (0.2-1.3); BLOOD UREA NITROGEN 11 mg/dL (7-20); CALCIUM 9.7 mg/dL (8.4-10.2); CARBON DIOXIDE 29 mmol/L (22-30); CHLORIDE 102 mmol/L (98-107); GLUCOSE 94 mg/dL (75-110); POTASSIUM 4.1 mmol/L (3.6-5.0); TOTAL PROTEIN 7.5 g/dL (6.3-8.2)
[2019-08-24 16:29] LABS: AMORPHOUS SEDIMENT,URINE TRACE /HPF; APPEARANCE,URINE SLIGHTLY-CLOUDY; BILIRUBIN,URINE NEGATIVE (NEGATIVE); CALCIUM OXALATE CRYSTALS,URINE MODERATE /HPF; COLOR,URINE YELLOW; GLUCOSE, URINE NEGATIVE (NEGATIVE); KETONES,URINE NEGATIVE (NEGATIVE); PROTEIN,URINE NEGATIVE (NEGATIVE); URINE SPECIFIC GRAVITY 1.021; UROBILINOGEN,URINE NEGATIVE mg/dL (<2.0)
[2019-08-24] MEDS ORDERED: LOPERAMIDE HCL 2 MG CAPSULE PO ONE (17:13)
[2019-08-24 17:35] VITALS: BP 127/86
== END 2019-08-24 17:37 | disposition home or self-care (01) ==
LOC: ER 13:46
DX: R11.2 Nausea with vomiting, unspecified (principal); R19.7 Diarrhea, unspecified; R10.32 Left lower quadrant pain; R10.2 Pelvic and perineal pain; R05 Cough
CPT/HCPCS: 99283; 96361; 96374; 36415; 83690; 85025; 80053; 81001; J2405; J7030

== ENCOUNTER 2019-10-26 10:23 | Emergency (ER) | payer BC ==
--- NOTE | 2019-10-26 10:52 | ER Document Report ---
ED Medical Screen (RME) - General Chief Complaint: Abdominal Pain Stated Complaint: ABDOMINAL PAIN, BLOODY STOOLS, DIZZINESS Time Seen by Provider: 10/26/19 10:46 Mode of Arrival: Ambulatory Information source: Patient Notes: Otherwise healthy 28-year-old male presents emergency department left upper quadrant abdominal pain. Patient reports pain severe over the last 3 days worsening today. He reports today he had a few drops of blood in the toilet. He does report that this pain has been intermittent over the last few months however he has not had a formal diagnosis yet. He does report that over the last few days he has had an increase in alcohol intake. Exam: Left upper quadrant tenderness with palpation. I have greeted and performed a rapid initial assessment of this patient. A comprehensive ED assessment and evaluation of the patient, analysis of test results and completion of the medical decision making process will be conducted by additional ED providers. I have specifically instructed the patient or family members with the patient to immediately return to any nursing staff should anything change in the patient's condition or with their chief complaint. TRAVEL OUTSIDE OF THE [place] IN LAST 30 DAYS: No - Related Data Allergies/Adverse Reactions: No Known Allergies Allergy (Verified 10/26/19 10:42) Home Medications: denies Past Medical History - Social History Chew tobacco use (# tins/day): No Frequency of alcohol use: Social Drug Abuse: Marijuana Renal/ Medical History: Denies: Hx Peritoneal Dialysis GI Medical History: Reports: Hx Gastroesophageal Reflux Disease Past Surgical History: Reports: Hx Orthopedic Surgery - left arm - Immunizations Immunizations up to date: Yes Hx Diphtheria, Pertussis, Tetanus Vaccination: Yes Physical Exam - Vital signs Vitals: Temp Pulse Resp BP Pulse Ox 98.0 F 70 18 132/79 H 98 10/26/19 10:28 10/26/19 10:28 10/26/19 10:28 10/26/19 10:28 10/26/19 10:28 Course - Vital Signs Vital signs: Temp Pulse Resp BP Pulse Ox 98.0 F 70 18 132/79 H 98 10/26/19 10:43 10/26/19 10:28 10/26/19 10:28 10/26/19 10:28 10/26/19 10:28 Doctor's Discharge - Discharge Disposition: HOME, SELF-CARE
[2019-10-26 11:18] LABS: ABSOLUTE BASOPHILS # (AUTO) 0.1 10^3/uL (0.0-0.2); ABSOLUTE EOSINOPHILS # (AUTO) 0.5 10^3/uL (0.0-0.6); ABSOLUTE LYMPHOCYTES (AUTO) 1.5 10^3/uL (0.5-4.7); ABSOLUTE MONOCYTES (AUTO) 0.6 10^3/uL (0.1-1.4); ABSOLUTE NEUT (AUTO) 4.7 10^3/uL (1.7-8.2); BASOPHILS % (AUTO) 0.9 % (0-2); HEMATOCRIT 45.1 % (37.9-51.0); HEMOGLOBIN 15.5 g/dL (13.5-17.0); LYMPHOCYTES % (AUTO) 20.8 % (13-45); MEAN CORPUSCULAR HEMOGLOBIN 30.5 pg (27.0-33.4); MEAN CORPUSCULAR HGB CONC 34.4 g/dL (32.0-36.0); MEAN CORPUSCULAR VOLUME 89 fl (80-97); MONOCYTES % (AUTO) 8.2 % (3-13); PLATELET COUNT 275 10^3/uL (150-450); RED BLOOD COUNT 5.08 10^6/uL (4.35-5.55); RED CELL DISTRIBUTION WIDTH 13.8 % (11.5-14.0); SEGMENTED NEUTROPHILS % (AUTO) 63.1 % (42-78); TOTAL CELLS COUNTED % (AUTO) 100 %; WHITE BLOOD COUNT 7.4 10^3/uL (4.0-10.5)
[2019-10-26 11:25] LABS: APPEARANCE,URINE SLIGHTLY-CLOUDY; BILIRUBIN,URINE NEGATIVE (NEGATIVE); COLOR,URINE YELLOW; GLUCOSE, URINE NEGATIVE (NEGATIVE); KETONES,URINE NEGATIVE (NEGATIVE); LEUKOCYTE ESTERASE,URINE NEGATIVE (NEGATIVE); NITRITE,URINE NEGATIVE (NEGATIVE); PROTEIN,URINE NEGATIVE (NEGATIVE); UROBILINOGEN,URINE NEGATIVE mg/dL (<2.0)
[2019-10-26] MEDS ORDERED: NORMAL SALINE 1000 ML 1,000 ML IV ONE (11:32)
[2019-10-26] MEDS ORDERED: KETOROLAC TROMETHAMINE INJ/PF 30 MG/1 ML SDV IV ONE (11:32)
--- NOTE | 2019-10-26 11:33 | ER Document Report ---
ED GI/ - General Chief Complaint: Abdominal Pain Stated Complaint: ABDOMINAL PAIN, BLOODY STOOLS, DIZZINESS Time Seen by Provider: 10/26/19 10:46 Mode of Arrival: Ambulatory Notes: 28-year-old male presents to the emergency department with a complaint of abdominal pain and associated blood per stool today. Apparently he has had a 4- month history of intermittent pain involving the left side of the abdomen. He has had occasional nausea and vomiting today however he began having severe pain after pulling himself into a truck. He shortly thereafter had a bowel movement and saw some traces of blood. He rates his pain a 7/10 and denies nausea. TRAVEL OUTSIDE OF THE [place] IN LAST 30 DAYS: No - Related Data Allergies/Adverse Reactions: No Known Allergies Allergy (Verified 10/26/19 10:42) Home Medications: denies Past Medical History - General Information source: Patient - Social History Smoking Status: Current Every Day Smoker Chew tobacco use (# tins/day): No Frequency of alcohol use: Social Drug Abuse: Marijuana Family History: Reviewed & Not Pertinent Patient has homicidal ideation: No Renal/ Medical History: Denies: Hx Peritoneal Dialysis GI Medical History: Reports: Hx Gastroesophageal Reflux Disease Past Surgical History: Reports: Hx Orthopedic Surgery - left arm - Immunizations Immunizations up to date: Yes Hx Diphtheria, Pertussis, Tetanus Vaccination: Yes Review of Systems - Review of Systems Notes: Constitutional: Negative for fever. HENT: Negative for sore throat. Eyes: Negative for visual changes. Cardiovascular: Negative for chest pain. Respiratory: Negative for shortness of breath. Gastrointestinal: See HPI Genitourinary: Negative for dysuria. Musculoskeletal: Negative for back pain. Skin: Negative for rash. Neurological: Negative for headaches, weakness or numbness. 10 point ROS negative except as marked above and in HPI. Physical Exam - Vital signs Vitals: Temp Pulse Resp BP Pulse Ox 98.0 F 70 18 132/79 H 98 10/26/19 10:28 10/26/19 10:28 10/26/19 10:28 10/26/19 10:28 10/26/19 10:28 - Notes Notes: PHYSICAL EXAMINATION: Physical Exam: General: Well-nourished well-developed in no acute distress HEENT: NC/AT, pupils equal round and reactive to light, MM moist,nares clear, oropharynx clear, airway patent Neck: supple, no adenopathy, no masses. Good range of motion Lungs: clear, no wheezing, no rales no rhonchi CVS: Regular rate and rhythm no murmur gallop or rub Abdomen: Soft, active, + tenderness on the lateral lower chest wall and lateral flank area of the abdomen, good bowel sounds, no masses, no guarding or rebound. Ext: No edema, clubbing or cyanosis. Neuro: Alert and responsive, moving all 4 extremities on command, cranial nerves intact, no focal findings Skin: Intact no open lesions, no rash PSYCH: Normal mood, normal affect. Course - Vital Signs Vital signs: Temp Pulse Resp BP Pulse Ox 98.0 F 70 18 132/79 H 98 10/26/19 10:43 10/26/19 10:28 10/26/19 10:28 10/26/19 10:28 10/26/19 10:28 - Laboratory Result Diagrams: 10/26/19 11:03 10/26/19 11:03 Laboratory results interpreted by me: 10/26/19 10/26/19 11:03 12:02 Eos % (Auto) 7.0 H Lactic Acid 0.6 L - Diagnostic Test Radiology reviewed: Image reviewed, Reports reviewed - CT abdomen and pelvis with IV contrast: No acute intra-abdominal findings, stranding noted at the base of the penis, Discharge - Discharge Clinical Impression: Left sided abdominal pain, Bright red blood per rectum Condition: Good Disposition: HOME, SELF-CARE Additional Instructions: You are seen in the emergency department today with the left-sided flank and abdominal discomfort, CT scan noted to be negative. You have also noted some blood in your stool earlier today, it may represent minor vascular issue. Please keep your appointment with the supervisor publications on . You may use Tylenol and ibuprofen for pain if needed. If your symptoms worsen or if you have other concerns you may return to the emergency department for further evaluation and treatment. You have been prescribed a muscle relaxant for the pain as it may be musculoskeletal. Using a cold compress to the area would be better than heat. HOME CARE INSTRUCTIONS & INFORMATION: Thank you for choosing us for your medical needs. We hope you're satisfied with the care you received. After you leave, you must properly care for your problem and, at the same time, observe its progress. Any condition can change. Some illnesses can change rapidly over hours or days. If your condition worsens, return to the Emergency Department or see your physician promptly. ABOUT YOUR X-RAYS AND EKG'S: If you had an EKG or X-rays taken, they have been read by the Emergency Physician. The X-rays and EKG's will also be read by a Radiologist or [employer] Tester within 24 hours. If discrepancies are noted, you will be notified by telephone. Please be certain the ED has a correct telephone number & address where you can be reached. Also, realize that some fractures or abnormalities do not show up on initial X-rays. If your symptoms continue, see your physician. ABOUT YOUR LABORATORY TEST: If you had laboratory tests, the results have been reviewed by the Emergency Physician. Some test results (for example cultures) may not be available for several days. You will be contacted if any test result shows you need additional treatment. Please be certain the ED has a correct telephone number and address where you can be reached. ABOUT YOUR MEDICATIONS: You will receive instructions on how to take your medicine on the prescription label you receive. Additional information may be provided by the Pharmacy. If you have questions afterwards, call the ED for clarification or further instructions. Some prescribed medications may cause drowsiness. Do not perform tasks such as driving a car or operating machinery without consulting your Pharmacist. If you feel you need a refill of pain medication, your condition will need re-evaluation. Please do not call for a refill of any medication. ABOUT YOUR SIGNATURE: Signature of this document acknowledges to followin. Understanding that you received emergency treatment and that you may be released before al medical problems are known or treated. Please be certain the ED has a correct phone number & address where you can be reached. 2. Acknowledgement that you will arrange for follow-up care as recommended. 3. Authorization for the Emergency Physician to provide information to your follow-up Physician in order to maximize your care. AT ANY TIME, IF YOUR SYMPTOMS CHANGE SIGNIFICANTLY OR WORSEN OR YOU DEVELOP NEW SYMPTOMS, RETURN TO THE EMERGENCY DEPARTMENT IMMEDIATELY FOR RE-EVALUATION. OUR GOAL IS TO PROVIDE EXCELLENT MEDICAL CARE! WE HOPE THAT WE HAVE MET YOUR EXPECTATIONS DURING YOUR EMERGENCY DEPARTMENT VISIT AND THAT YOU FEEL YOU HAVE RECEIVED EXCELLENT CARE! Prescriptions: Baclofen [Baclofen 10 mg Tablet] 10 mg PO TID #30 tab
[2019-10-26 11:39] LABS: ALBUMIN 4.5 g/dL (3.5-5.0); ALKALINE PHOSPHATASE 103 U/L (38-126); ANION GAP 7 (5-19); ASPARTATE AMINO TRANSFERASE 28 U/L (17-59); BILIRUBIN,TOTAL 0.5 mg/dL (0.2-1.3); BLOOD UREA NITROGEN 14 mg/dL (7-20); CALCIUM 9.8 mg/dL (8.4-10.2); CARBON DIOXIDE 26 mmol/L (22-30); CHLORIDE 104 mmol/L (98-107); GLUCOSE 103 mg/dL (75-110); TOTAL PROTEIN 7.8 g/dL (6.3-8.2)
[2019-10-26] MEDS ORDERED: ACETAMINOPHEN 325 MG TABLET PO ONE (14:30)
--- NOTE | 2019-10-26 14:33 | RADIOLOGY REPORT (SQ) ---
EXAM DESCRIPTION: CT ABD/PELVIS WITH IV ONLY IMAGES COMPLETED DATE/TIME: 10/26/2019 2:09 pm REASON FOR STUDY: Left lower quadrant COMPARISON: CT of the abdomen pelvis with contrast from 01/28/2019. TECHNIQUE: CT scan of the abdomen and pelvis performed using helical scanning technique with dynamic intravenous contrast injection. No oral contrast. Images reviewed with lung, soft tissue, and bone windows. Reconstructed coronal and sagittal MPR images reviewed. Delayed images for evaluation of the urinary system also acquired. All images stored on PACS. All CT scanners at this facility use dose modulation, iterative reconstruction, and/or weight based d osing when appropriate to reduce radiation dose to as low as reasonably achievable (ALARA). [facility]: Dose Right [facility]: CareDose [facility]: Dose Right [facility]: Teradose 4D [facility]: Cogenics CONTRAST TYPE AND DOSE: Contrast/concentration: Isovue 350.00 mg/ml; Total Contrast Delivered: 100.0 ml; Total Saline Delivered: 56.3 ml RENAL FUNCTION: Creatinine 0.74 milligrams/deciliter. RADIATION DOSE: CT Rad equipment meets quality standard of care and radiation dose reduction techniq ues were employed. CTDIvol: 16.1 - 19.5 mGy. DLP: 3384 mGy-cm. LIMITATIONS: None. FINDINGS: LOWER CHEST: No acute findings. LIVER: The morphology of the liver is noncirrhotic. The portal veins are patent. There is no hepati c mass. SPLEEN: No splenomegaly or splenic mass. PANCREAS: No acute gross abnormality. GALLBLADDER: No abnormality that is apparent on CT. ADRENAL GLANDS: No mass or asymmetry. RIGHT KIDNEY AND URETER: No solid mass, hydronephrosis, nephrolithiasis, hydroureter or ureterolithia sis. No filling defects within the calices, pelvis or ureters on the excretory phase. LEFT KIDNEY AND URETER: No solid mass, hydronephrosis, nephrolithiasis, hydroureter or ureterolithias is. No filling defects within the calices, pelvis or ureters on the excretory phase. AORTA AND VESSELS: No aneurysm or dissection of the abdominal aorta. RETROPERITONEUM: No retroperitoneal adenopathy, hemorrhage or mass. BOWEL AND PERITONEAL CAVITY: No bowel obstruction, bowel wall thickening or pericolonic/ perienteric inflammation. No mesenteric adenopathy, free intraperitoneal fluid or mesenteric/ omental inflammati on. APPENDIX: Unable to identify the appendix. There is no periappendiceal inflammation. PELVIS: No abnormality. ABDOMINAL WALL: Subtle dermal thickening and inflammatory stranding of the subcutaneous fat near the base of the penis on the left. BONES: No acute fracture or osseous lesion. OTHER: Cluster of borderline enlarged (perhaps reactive) left superficial inguinal lymph nodes. IMPRESSION: 1. No acute intra- abdominal or intrapelvic abnormality. 2. Subtle thermal thickening and inflammatory stranding of the subcutaneous fat near the base of the penis on the left - correlate with clinical findings. 3. Cluster of borderline enlarged left superficial inguinal lymph nodes (image 101 of series 5) that could be reactive to the aforementioned inflammation. TECHNICAL DOCUMENTATION: JOB ID: [id number] Quality ID # [id number]: Final reports with documentation of one or more dose reduction techniques (e.g., Au tomated exposure control, adjustment of the mA and/or kV according to patient size, use of iterative reconstruction technique) 2010 [employer]- All Rights Reserved Reading location - IP/workstation name: [email or web address]
[2019-10-26 16:21] VITALS: BP 126/65
== END 2019-10-26 16:18 | disposition home or self-care (01) ==
LOC: ER 10:23
DX: R10.9 Unspecified abdominal pain (principal); R42 Dizziness and giddiness; K92.1 Melena
CPT/HCPCS: 99284; 96361; 96374; 36415; 83605; 83690; 85025; 80053; 81001; 74177; J1885; J7030

== ENCOUNTER → 2019-12-16 | Outpatient (CLI) | payer BC ==
--- NOTE | 2019-12-16 09:54 | RADIOLOGY REPORT (SQ) ---
EXAM DESCRIPTION: U/S ABDOMEN LIMITED W/O DOP IMAGES COMPLETED DATE/TIME: 12/16/2019 9:35 am REASON FOR STUDY: R10.13 EPIGASTRIC PAIN R10.13 EPIGASTRIC PAIN COMPARISON: CT abdomen pelvis dated 10/26/2019 TECHNIQUE: Dynamic and static grayscale images acquired of the abdomen and recorded on PACS. Additio nal selected color Doppler and spectral images recorded. LIMITATIONS: None. FINDINGS: PANCREAS: The visualized portions the pancreas are normal in appearance. LIVER: No masses. Echotexture normal. LIVER VASCULATURE: Normal directional flow of the main portal vein and hepatic veins. GALLBLADDER: No stones. Normal wall thickness. No pericholecystic fluid. ULTRASOUND-DETECTED DIAZ'S SIGN: Negative. INTRAHEPATIC DUCTS AND COMMONINFERIOR VENA CAVA: Normal flow. AORTA: No aneurysm. RIGHT KIDNEY: Normal size. Normal echogenicity. No solid or suspicious masses. No hydronephrosis. No calcifications. PERITONEAL AND RIGHT PLEURAL SPACE: No ascites or effusions. OTHER: No other significant findings. IMPRESSION: NORMAL RIGHT UPPER QUADRANT ULTRASOUND. TECHNICAL DOCUMENTATION: JOB ID: [id number] 2010 [employer]- All Rights Reserved Reading location - IP/workstation name: [email or web address]
--- NOTE | 2019-12-16 11:34 | RADIOLOGY REPORT (SQ) ---
EXAM DESCRIPTION: NM HIDA SCAN WITH CCK IMAGES COMPLETED DATE/TIME: 12/16/2019 11:13 am REASON FOR STUDY: R10.13 EPIGASTRIC PAIN R10.13 EPIGASTRIC PAIN COMPARISON: Abdominal ultrasound done earlier the same day, CT dated 10/26/2019 RADIONUCLIDE AND DOSE: DOSAGE RADIONUCLIDE: 5.42 millicuries Tc99m Mebrofenin. DOSAGE CCK: 1.6 micrograms. DOSAGE MORPHINE: Not required. The route of agent administration: Intravenous TECHNIQUE: Serial imaging right upper quadrant up to 60 minutes following injection of radionuclide. CCK injected after gallbladder visualized. LIMITATIONS: None. FINDINGS: LIVER: Normal visualization without areas of photopenia. INTRAHEPATIC BILE DUCTS: Normal size and no delay in visualization. COMMON BILE DUCT: Normal without dilatation. GALLBLADDER: Normal visualization. Calculated ejection fraction of 50%. Normal range is greater th an 35%. PHYSICAL RESPONSE: Patients presenting complaint was reproduced. OTHER: No other significant finding. IMPRESSION: No evidence of cystic or common bile duct obstruction. Normal gallbladder ejection frac tion. The patient's symptoms were reproduced with CCK administration. TECHNICAL DOCUMENTATION: JOB ID: [id number] 2010 [employer]- All Rights Reserved Reading location - IP/workstation name: [email or web address]
== END ==
LOC: RAD 08:33
PROVIDERS: ATTEND Internal Medicine
DX: R10.13 Epigastric pain (principal)
CPT/HCPCS: 76705; 78227; J2805; A9537; Q9969